=== PATIENT | male | born 2005 | race Caucasian/White ===

== ENCOUNTER 2024-08-20 09:46 | Emergency (ER) | payer OTHER ==
[~2024-08-20] VITALS: Ht 177.8 cm; Wt 65.8 kg
[2024-08-20 09:50] VITALS: BP 126/69; TEMP 98.5
[2024-08-20] MEDS ORDERED: CLIN300C12 PO (10:12)
[2024-08-20] MEDS ORDERED: dexaMETHasone SOD PHOSPHATE 1 ML ONE (10:17)
[2024-08-20] MEDS: dexaMETHasone SOD PHOSPHATE 4 MG/ML VIAL IM ONE (10:29)
[2024-08-20 10:30] VITALS: O2SAT 98
== END 2024-08-20 10:31 | disposition home or self-care (01) ==
LOC: ER 09:51
DX: J02.9 Acute pharyngitis, unspecified (principal); R13.10 Dysphagia, unspecified; Z91.030 Bee allergy status
CPT/HCPCS: 99283; 96372; 87070; 87880; J1100; 86403-TC